=== PATIENT | female | born 1945 | race Caucasian/White ===

== ENCOUNTER 2018-10-27 09:42 | Outpatient (RCR) | payer MEDICARE, BC, SELFPAY ==
[2018-10-27 10:26] VITALS: BP 166/79; PULSE 103; RESP 16; TEMP 36.9; BMI 32.1
--- NOTE | 2018-10-27 11:12 | PCM.WC.HP ---
(1) Scalp wound Status: Acute Current Visit: Yes Qualifiers: Encounter type: initial encounter Code(s): S01.00XA - Unspecified open wound of scalp, initial encounter (2) Traumatic hematoma of scalp Status: Acute Current Visit: Yes Qualifiers: Encounter type: initial encounter Qualified Code(s): S00.03XA - Contusion of scalp, initial encounter Code(s): S00.03XA - Contusion of scalp, initial encounter (3) Gangrene Status: Acute Current Visit: Yes Code(s): I96 - Gangrene, not elsewhere classified (4) Hypertension Status: Chronic Current Visit: No Code(s): I10 - Essential (primary) hypertension (5) COPD (chronic obstructive pulmonary disease) Status: Chronic Current Visit: No Code(s): J44.9 - Chronic obstructive pulmonary disease, unspecified (6) Diabetes mellitus Status: Chronic Current Visit: No Qualifiers: Diabetes mellitus type: type 2 Code(s): E11.9 - Type 2 diabetes mellitus without complications (7) Obesity (BMI 30.0-34.9) Status: Chronic Current Visit: No Code(s): E66.9 - Obesity, unspecified (8) Intracranial hemorrhage after injury without loss of consciousness Status: Acute Current Visit: Yes Qualifiers: Encounter type: initial encounter Qualified Code(s): S06.300A - Unspecified focal traumatic brain injury without loss of consciousness, initial encounter Code(s): S06.300A - Unspecified focal traumatic brain injury without loss of consciousness, initial encounter (9) Hyperlipidemia Status: Chronic Current Visit: No Code(s): E78.5 - Hyperlipidemia, unspecified History of Present Illness Date of Service: 10/27/18 Chief Complaint: Large traumatic posterior occipital scalp wound with miladis necrosis and gangrene History of Wound: This is a 73-year-old female who presents for initial evaluation relative to a large scalp wound. The patient tripped on the stairs in her garage 3 weeks ago, falling backwards and striking the occipital region of her scalp against hard margy. She apparently did not lose consciousness. She did not seek medical attention at that time. She was primarily concerned with the health of her , who has subsequently recently perished. Due to the passing of the patient's , family members gathered at the patient's home, and the patient's son noted a large wound on her posterior scalp. She was seen and evaluated in the emergency department at [facility] on October 20, 2018. There she was noted to have a hematoma of her occipital scalp, which was incised and partially drained. It is unknown whether cultures were obtained. Patient was placed on an antibiotic 4 times daily, which continues until the current time, though the name of the antibiotic is not known by the patient. A CT scan was performed on October 20, 2018, which revealed a 10 mm focus of increased attenuation in the maggy consistent with hemorrhage. This finding was not felt to be clinically significant, after discussion with the neurosurgeon at [facility], and a repeat scan to assure resolution was recommended. The available report of the patient's CT scan does not specifically indicate whether any skull fractures were evident. The patient presents at this time for further evaluation and management relative to the traumatic wound on the posterior occipital scalp. Past Medical History Past Medical History: Chronic Problems Hypertension (Chronic) COPD (chronic obstructive pulmonary disease) (Chronic) Diabetes mellitus (Chronic) Obesity (BMI 30.0-34.9) (Chronic) Hyperlipidemia (Chronic) Past Medical History: Since history is positive for diabetes mellitus, hypertension, chronic obstructive pulmonary disease, hyperlipidemia, and obesity. She denies a history of myocardial infarction, congestive heart failure, cerebrovascular accident, cancer, renal disease, and thyroid disease. Surgical History: - - Patient has a history of bilateral total hip replacements. She is undergone left total knee replacement in the past. Home Medications: Ambulatory Orders Medication Instructions Recorded Amlodipine 10 mg PO DAILY 10/27/18 Aspirin, Baby 81 mg PO DAILY 10/27/18 Atorvastatin Calcium 40 mg PO DAILY 10/27/18 Clonidine HCl 0.1 mg PO QHS 10/27/18 Coreg 40 mg PO DAILY 10/27/18 Janumet Xr 50-1,000 mg Tablet 50 mg PO DAILY 10/27/18 Latanoprost 0.5 mg EACH EYE QHS 10/27/18 Losartan-Hctz 100-12.5 mg Tab 100 mg PO DAILY 10/27/18 Metformin HCl 1,000 mg PO DAILY 10/27/18 Potassium 99 mg PO DAILY 10/27/18 Symbicort 80-4.5 Mcg Inhaler 80 mcg INHALATION BID 10/27/18 - Family History Paternal - - Patient's father in his 80s of old age. Patient's mother at age of 72 with a history of rheumatic heart disease. Social History: Patient is a recent . She lives alone. She is a former smoker. She consumes alcoholic beverages occasionally. She is a retired employee of a grocery store, in a management position. Lives: Alone Smoking Status: Former smoker Tobacco Use: Non-smoker Alcohol: Occasional Drugs: None Review of Systems Constitutional: Denies: Chills, Fever, Weight Change Eyes: Denies: Pain, Vision Change HEENT: Denies: Difficulty Hearing, Difficulty Swallowing, Sinus Congestion Cardiovascular: Denies: Chest Pain, Palpitations Respiratory: Denies: Cough, Shortness of Breath Gastrointestinal: Denies: Diarrhea, Nausea, Vomiting Genitourinary: Denies: Dysuria, Hematuria Endocrine: Denies: Heat/ Cold Intolerance, Polydipsia, Polyuria Hematologic/ Lymphatic: Denies: Easy Bruising, Easy Bleeding - Physical Exam Vital Signs Temp Pulse Resp BP 98.4 F 103 H 16 166/79 H 10/27/18 10:26 10/27/18 10:26 10/27/18 10:26 10/27/18 10:26 General: Alert, Oriented x3, Cooperative, No apparent distress, Well developed, Well nourished, - - The patient is moderately obese HEENT: PERRLA, EOMI, Normocephalic, - - A large frankly necrotic wound is noted on the posterior occipital scalp. Dimensions are documented elsewhere. There is purulent material emanating from the inferior portion of this wound. Swab cultures were obtained for aerobic and anaerobic growth. Oral: Moist Mucosa, No Gingival or Mucosal Lesions/ Ulcerations Neck: Supple, No JVD, Negative Carotid Bruits, Negative Hepatojugular Reflux, No Nodes, No Nuchal Rigidity, Trachea Midline Lungs: Clear to auscultation, Normal air movement, No rhonchi, No wheeze, No rales Cardiovascular: Regular rate, Regular Rhythm, Normal S1, Normal S2, No murmurs Abdomen: Soft, Non Tender, Non-Distended, Obese Extremities: No clubbing, No cyanosis, No edema, No Calf Tenderness Skin: No rashes Wound Measurements and Assessment WC - Nurse 1 - General Ulcer Measurement Start: 10/27/18 10:25 Freq: Status: Active Protocol: Activity Type Activity Date Activity User E-Sign Co-Sign Detail Recorded Client Recorded Date Recorded By Document 10/27/18 10:26 MW [id number] 10/27/18 10:34 MW 10/27/18 10:26 Wound Center Nurse 1 [Ulcer Assessment] #1 POST SCALP -Combined with other wound No -Current Size (cm) - Length 4.5 -Current Size (cm) - Width 4.6 -Current Size (cm) - Depth 0.1 -Total Square Cm 20.70 -Date of Last Picture (Recall this 10/27/18 field) -Photo Taken Yes -Epithelialization None Present -Tunneling No -Undermining/Tunneling No -Circular Undermining No -Exudate Amt Medium -Exudate Type Yellow/Green -Wound Margin Thickened -Granulation Amt None Present (0 %) -Granulation Quality N/A -Slough/Fibrin Yes -Necrosis Amt Large (67-100%) -Necrotic Tissue Type Eschar -Structure Exposed N/A -Texture (Josephine-wound Skin Appearance) No Abnormality Assessed -Moisture (Josephine-wound Skin Appearance No Abnormality ) Assessed Dry/Scaly -Color (Josephine-wound Skin Appearance) No Abnormality Assessed -Temperature (Josephine-wound Skin No Abnormality Appearance) (Pt Warm) -Tenderness on Palpation (Josephine-wound No Skin Appearance) -Ulcer Cleansing Rinsed/ Irrigated with Saline -Foul Odor after Cleansing No -Anesthetic Used 5% Lidocaine Gel [Edema Assessment] -Lower Limb Edema Present No Musculoskeletal: No Muscle Wasting Neurological: Cranial nerves II-XII grossly intact, Neuro grossly intact, - - Specifically, with respect to findings on the patient's recent CT scan, there is no evidence of neurological deficit at this time. Psych/Mental Status: Normal Affect, Appropriate, Alert and oriented to time, place, person, mood and affect Debridement Note Laterality: Not Applicable - Posterior occipital scalp Type of Debridement: Excisional debridement Anesthesia Used: 5% Lidocaine Gel Depth: Down to and including healthy tissue, in the subcutaneous layer Percentage of wound debrided: 100 Instrument Used: Forceps, - - Scissors Severity: Fat Layer Exposed Amount of bleeding with debridement: Mild Bleeding Controlled with: Compression and gauze Patient tolerated procedure well A large frankly necrotic scalp wound was noted on the posterior occipital scalp. During the course of obtaining swab cultures for aerobic and anaerobic growth, it became evident that there was a large amount of undermined space beneath the necrotic tissue. Therefore, using a sterile scalpel, and sterile scissors, the large necrotic eschar was excised, exposing a large open wound beneath. The underlying skull appears to be intact. The debridement was carried out to the margins of the necrotic tissue, no care was exercised to avoid extending into adjacent healthy tissue, due to concerns regarding bleeding in the well vascularized scalp. Undermining is noted peripherally. Assessment/Plan Active Problems Scalp wound (Acute) Traumatic hematoma of scalp (Acute) Gangrene (Acute) Intracranial hemorrhage after injury without loss of consciousness (Acute) Assessment: This is a 73-year-old female with medical problems as documented above. A posterior occipital scalp injury was sustained approximately 3 weeks ago, result of a fall in the patient's garage. She presents at this time with a large frankly necrotic wound on her posterior scalp, with another lying cavity which likely represented the hematoma cavity from her injury. A debridement has been performed, excising the overlying necrotic tissue, leaving a large tissue defect remaining, with some degree of undermining. Plan: We are to implement the use of Aquacel topically within the large scalp wound. This will be changed daily or every other day. An effort will be made to recruit the services of home health nursing care. We will obtain routine laboratory studies, including a CBC, comprehensive metabolic profile, hemoglobin A1c, and serum prealbumin. Swab cultures have been obtained for aerobic and anaerobic growth, and results will be awaited. We will defer management and follow-up relative to the patient's neurological status and recent CT scan findings showing hemorrhage within the maggy. The patient and her friend have been advised to seek follow-up in this regard with the patient's primary care physician in [place]. A follow-up CT scan has been recommended as follow-up to the initial scan. The patient has been advised to continue with her current course of antibiotics to completion. She is to return in 1 week for reassessment. We are to request consultation with Dr. Zaman, Plastic Surgery, for recommendations as to optimal management of the large posterior scalp defect. Influenza vaccine was not administered today. The patient is not a smoker. She stands 5 feet 4 inches tall. She weighs 190 pounds. BMI is 32.1, which places the patient in a class I obesity category. Weight loss has been recommended, in collaboration with her primary care physician has been advised.
[2018-10-27 18:06] LABS: M R Staph aureus DNA By PCR Negative (Negative); Probe Check PASS; Staph aureus DNA By PCR POSITIVE (Negative)
--- OUTSIDE RECORDS SUMMARY | 2018-12-29 12:28 | XMS RPT_ITS ---
:1945 Author Organization OHIP Care Team Providers Name Role Phone Kd Limon Attending Unavailable Chet Lorenz Primary Care Unavailable Kd Limon Referring Unavailable RICKY YEAGER, DR. VILLARREAL Attending Unavailable CHET LORENZ MD Primary Care Unavailable CHET LORENZ Admitting Unavailable CHET LORENZ Attending Unavailable CHET LORENZ Primary Care Unavailable CHET LORENZ Consulting Unavailable PROVIDER, UNKNOWN Consulting Unavailable PROVIDER, UNKNOWN Consulting Unavailable PROVIDER, UNKNOWN Consulting Unavailable CHET LORENZ Admitting Unavailable CHET LORENZ Attending Unavailable CHET LORENZ Primary Care Unavailable CHET LORENZ Consulting Unavailable PROVIDER, UNKNOWN Consulting Unavailable PROVIDER, UNKNOWN Consulting Unavailable PROVIDER, UNKNOWN Consulting Unavailable STEPHANIE MILLER DR Admitting Unavailable STEPHANIE MILLER DR Attending Unavailable STEPHANIE MILLER DR Primary Care Unavailable CHET LORENZ Consulting Unavailable PROVIDER, UNKNOWN Consulting Unavailable PROVIDER, UNKNOWN Consulting Unavailable PROVIDER, UNKNOWN Consulting Unavailable JOSE, DR JAD Potter Admitting Unavailable JOSE, DR JAD Potter Attending Unavailable CHET LORENZ Referring Unavailable JOSE, DR JAD Potter Primary Care Unavailable CHET LORENZ Consulting Unavailable PROVIDER, UNKNOWN Consulting Unavailable PROVIDER, UNKNOWN Consulting Unavailable PROVIDER, UNKNOWN Consulting Unavailable JESS VILLALOBOS Attending Unavailable UNKNOWN, PROVIDER Attending Unavailable [facility] Primary Care Unavailable PROBLEMS PROBLEMS DATE TYPE CONDITION / CODE ATTENDING STATUS SOURCE 08/07/2018 Active Laceration without JESS VILLALOBOS Active [facility] Other right eyelid and [place] periocular area, Repository initial encounter / S01.111A(ICD-10) 08/07/2018 Admitting Unknown / Unknown Active [facility](Unknown[facility] Repository 04/28/2018 Admitting Encounter for CHET LORENZ Active [facility] screening mammogram [facility] neoplasm of breast Repository / Z1231(ICD-10) 04/28/2018 Principle Encounter for CHET LORENZ Active [facility] screening mammogram [facility] neoplasm of breast Repository / Z1231(ICD-10) 04/23/2018 Admitting Type 2 diabetes CHET LORENZ Active [facility] E119(ICD-10) Repository 04/23/2018 Principle Type 2 diabetes CHET LORENZ Active [facility] E119(ICD-10) Repository 04/23/2018 Secondary Essential (primary) CHET LORENZ Active [facility] hypertension / [facility] I10(ICD-10[facility] Repository 04/23/2018 Secondary Hyperlipidemia, CHET LORENZ Active [facility] unspecified / [facility] E785(ICD-10) [facility] Repository 04/23/2018 Secondary Chronic obstructive LORENZCHET TIDWELL Active [facility] Diagnosis pulmonary disease, [facility] unspecified / Hospital J449(ICD-10) Repository 04/23/2018 Secondary Obesity, CHET LORENZ Active [facility] unspecified / [facility] E669(ICD-10) [facility] Repository PROCEDURES PROCEDURES No Procedure Records FoundRESULTS RESULTS WOUND CTR HISTORY Observed: 10/27/2018 Status: F Source: DAGMAR AND PHYSICAL 11:38 AM [facility] REPOSITORY [facility] [address] [place] [address] Wound Ctr History AND Physical 10/27/18 1112 MR#: [id number] Acct: [id number] Name: TRACI SANDS Rep #: [id number] : 1945 73 From: Kd Limon MD PCP: Chet Lorenz Status: REG RCR Y Location: WC (1) Scalp wound Status: Acute Current Visit: Yes Qualifiers: Encounter type: initial encounter Code(s): S01.00XA - Unspecified open wound of scalp, initial encounter (2) Traumatic hematoma of scalp Status: Acute Current Visit: Yes Qualifiers: Encounter type: initial encounter Qualified Code(s): S00.03XA - Contusion of scalp, initial encounter Code(s): S00.03XA - Contusion of scalp, initial encounter (3) Gangrene Status: Acute Current Visit: Yes Code(s): I96 - Gangrene, not elsewhere classified (4) Hypertension Status: Chronic Current Visit: No Code(s): I10 - Essential (primary) hypertension (5) COPD (chronic obstructive pulmonary disease) Status: Chronic Current Visit: No Code(s): J44.9 - Chronic obstructive pulmonary disease, unspecified (6) Diabetes mellitus Status: Chronic Current Visit: No Qualifiers: Diabetes mellitus type: type 2 Code(s): E11.9 - Type 2 diabetes mellitus without complications (7) Obesity (BMI 30.0-34.9) Status: Chronic Current Visit: No Code(s): E66.9 - Obesity, unspecified (8) Intracranial hemorrhage after injury without loss of consciousness Status: Acute Current Visit: Yes Qualifiers: Encounter type: initial encounter Qualified Code(s): S06.300A - Unspecified focal traumatic brain injury without loss of consciousness, initial encounter Code(s): S06.300A - Unspecified focal traumatic brain injury without loss of consciousness, initial encounter (9) Hyperlipidemia Status: Chronic Current Visit: No Code(s): E78.5 - Hyperlipidemia, unspecified History of Present Illness Date of Service: 10/27/18 Chief Complaint: Large traumatic posterior occipital scalp wound with miladis necrosis and gangrene History of Wound: This is a 73-year-old female who presents for initial evaluation relative to a large scalp wound. The patient tripped on the stairs in her garage 3 weeks ago, falling backwards and striking the occipital region of her scalp against hard margy. She apparently did not lose consciousness. She did not seek medical attention at that time. She was primarily concerned with the health of her , who has subsequently recently perished. Due to the passing of the patient's , family members gathered at the patient's home, and the patient's son noted a large wound on her posterior scalp. She was seen and evaluated in the emergency department at [facility] on October 20, 2018. There she was noted to have a hematoma of her occipital scalp, which was incised and partially drained. It is unknown whether cultures were obtained. Patient was placed on an antibiotic 4 times daily, which continues until the current time, though the name of the antibiotic is not known by the patient. A CT scan was performed on October 20, 2018, which revealed a 10 mm focus of increased attenuation in the maggy consistent with hemorrhage. This finding was not felt to be clinically significant, after discussion with the neurosurgeon at [facility], and a repeat scan to assure resolution was recommended. The available report of the patient's CT scan does not specifically indicate whether any skull fractures were evident. The patient presents at this time for further evaluation and management relative to the traumatic wound on the posterior occipital scalp. Past Medical History Past Medical History: Chronic Problems Hypertension (Chronic) COPD (chronic obstructive pulmonary disease) (Chronic) Diabetes mellitus (Chronic) Obesity (BMI 30.0-34.9) (Chronic) Hyperlipidemia (Chronic) Past Medical History: Since history is positive for diabetes mellitus, hypertension, chronic obstructive pulmonary disease, hyperlipidemia, and obesity. She denies a history of myocardial infarction, congestive heart failure, cerebrovascular accident, cancer, renal disease, and thyroid disease. Surgical History: - - Patient has a history of bilateral total hip replacements. She is undergone left total knee replacement in the past. Home Medications: Ambulatory Orders Medication Instructions Recorded Amlodipine 10 mg PO DAILY 10/27/18 Aspirin, Baby 81 mg PO DAILY 10/27/18 Atorvastatin Calcium 40 mg PO DAILY 10/27/18 - Family History Paternal - - Patient's father in his 80s of old age. Patient's mother at age of 72 with a history of rheumatic heart disease. Social History: Patient is a recent . She lives alone. She is a former smoker. She consumes alcoholic beverages occasionally. She is a retired employee of a grocery store, in a management position. Lives: Alone Smoking Status: Former smoker Tobacco Use: Non-smoker Alcohol: Occasional Drugs: None Review of Systems Constitutional: Denies: Chills, Fever, Weight Change Eyes: Denies: Pain, Vision Change HEENT: Denies: Difficulty Hearing, Difficulty Swallowing, Sinus Congestion Cardiovascular: Denies: Chest Pain, Palpitations Respiratory: Denies: Cough, Shortness of Breath Gastrointestinal: Denies: Diarrhea, Nausea, Vomiting Genitourinary: Denies: Dysuria, Hematuria Endocrine: Denies: Heat/ Cold Intolerance, Polydipsia, Polyuria Hematologic/ Lymphatic: Denies: Easy Bruising, Easy Bleeding - Physical Exam Vital Signs Temp Pulse Resp BP 98.4 F 103 H 16 166/79 H 10/27/18 10:26 10/27/18 10:26 10/27/18 10:26 10/27/18 10:26 General: Alert, Oriented x3, Cooperative, No apparent distress, Well developed, Well nourished, - - The patient is moderately obese HEENT: PERRLA, EOMI, Normocephalic, - - A large frankly necrotic wound is noted on the posterior occipital scalp. Dimensions are documented elsewhere. There is purulent material emanating from the inferior portion of this wound. Swab cultures were obtained for aerobic and anaerobic growth. Oral: Moist Mucosa, No Gingival or Mucosal Lesions/ Ulcerations Neck: Supple, No JVD, Negative Carotid Bruits, Negative Hepatojugular Reflux, No Nodes, No Nuchal Rigidity, Trachea Midline Lungs: Clear to auscultation, Normal air movement, No rhonchi, No wheeze, No rales Cardiovascular: Regular rate, Regular Rhythm, Normal S1, Normal S2, No murmurs Abdomen: Soft, Non Tender, Non-Distended, Obese Extremities: No clubbing, No cyanosis, No edema, No Calf Tenderness Skin: No rashes Wound Measurements and Assessment WC - Nurse 1 - General Ulcer Measurement Start: 10/27/18 10:25 Freq: Status: Active Protocol: Activity Type Activity Date Activity User E-Sign Co-Sign Detail Recorded Client Recorded Date Recorded By Document 10/27/18 10:26 MW [id number] 10/27/18 10:34 [facility] W[facility] Nurse 1 [Ulcer Assessment] Musculoskeletal: No Muscle Wasting Neurological: Cranial nerves II-XII grossly intact, Neuro grossly intact, - - Specifically, with respect to findings on the patient's recent CT scan, there is no evidence of neurological deficit at this time. Psych/Mental Status: Normal Affect, Appropriate, Alert and oriented to time, place, person, mood and affect Debridement Note Laterality: Not Applicable - Posterior occipital scalp Type of Debridement: Excisional debridement Anesthesia Used: 5% Lidocaine Gel Depth: Down to and including healthy tissue, in the subcutaneous layer Percentage of wound debrided: 100 Instrument Used: Forceps, - - Scissors Severity: Fat Layer Exposed Amount of bleeding with debridement: Mild Bleeding Controlled with: Compression and gauze Patient tolerated procedure well A large frankly necrotic scalp wound was noted on the posterior occipital scalp. During the course of obtaining swab cultures for aerobic and anaerobic growth, it became evident that there was a large amount of undermined space beneath the necrotic tissue. Therefore, using a sterile scalpel, and sterile scissors, the large necrotic eschar was excised, exposing a large open wound beneath. The underlying skull appears to be intact. The debridement was carried out to the margins of the necrotic tissue, no care was exercised to avoid extending into adjacent healthy tissue, due to concerns regarding bleeding in the well vascularized scalp. Undermining is noted peripherally. Assessment/Plan Active Problems Scalp wound (Acute) Traumatic hematoma of scalp (Acute) Gangrene (Acute) Intracranial hemorrhage after injury without loss of consciousness (Acute) Assessment: This is a 73-year-old female with medical problems as documented above. A posterior occipital scalp injury was sustained approximately 3 weeks ago, result of a fall in the patient's garage. She presents at this time with a large frankly necrotic wound on her posterior scalp, with another lying cavity which likely represented the hematoma cavity from her injury. A debridement has been performed, excising the overlying necrotic tissue, leaving a large tissue defect remaining, with some degree of undermining. Plan: We are to implement the use of Aquacel topically within the large scalp wound. This will be changed daily or every other day. An effort will be made to recruit the services of home health nursing care. We will obtain routine laboratory studies, including a CBC, comprehensive metabolic profile, hemoglobin A1c, and serum prealbumin. Swab cultures have been obtained for aerobic and anaerobic growth, and results will be awaited. We will defer management and follow-up relative to the patient's neurological status and recent CT scan findings showing hemorrhage within the maggy. The patient and her friend have been advised to seek follow-up in this regard with the patient's primary care physician in [place]. A follow-up CT scan has been recommended as follow-up to the initial scan. The patient has been advised to continue with her current course of antibiotics to completion. She is to return in 1 week for reassessment. We are to request consultation with Dr. Zaman, Plastic Surgery, for recommendations as to optimal management of the large posterior scalp defect. Influenza vaccine was not administered today. The patient is not a smoker. She stands 5 feet 4 inches tall. She weighs 190 pounds. BMI is 32.1, which places the patient in a class I obesity category. Weight loss has been recommended, in collaboration with her primary care physician has been advised. 10/27/18 1138 <Electronically signed by Kd Limon MD> Date Kd Limon MD CC: Signed MRSA WOUND DNA BY Collected: 10/27/2018 Status: F Source: DAGMAR PCR 11:00 AM [facility] REPOSITORY Order Comment: Specimen Source? POSTERIOR HEAD TYPE CODE TESTS RESULT OUT OF RANGE REFERENCE UNITS LAB L8200.1100 Negative Normal MRSA Negative RESULT LAB L8200.1150 Negative High SA RESULT POSITIVE Performed By: #### L8200.1075 #### [facility] [place], [address] Observed: 10/27/2018 Status: P Source: DAGMAR CULTURE, DEEP WOUND 11:00 AM [facility] REPOSITORY Gram Stain Gram Stain Rare White Blood Cells Rare Red Blood Cells No organisms seen Wound Culture ORGANISM 1: Staphylococcus aureus Amount Growth 1+ ORGANISM 2: Enterococcus faecalis Amount Growth 1+ Staphylococcus aureus: REACTION Cefoxitin *NF NEG Doxycline <=0.5 S Daptomycin $$ 0.25 S Clindamycin $$ R Inducable Clindamycin Resistan POS Erythromycin $ >=8 R Gentamicin $ <=0.5 S Levofloxacin $ <=0.12 S Linezolid $$$$ 2 S Moxifloxicin *NF <=0.25 S Oxacillin NF 0.5 S Tigecycline $$$$ <=0.12 S Rifampin $$ <=0.5 S Tetracycline NF <=1 S Trimethoprim/Sulfametho $ <=10 S Vancomycin $ <=0.5 S (NF) indicates non-formulary drug at [facility]. Approval by Infectious Disease Specialist required before non-formulary drugs may be ordered and/or dispensed. * CLSI guidelines does not recommend testing of cephalosporins. This interpretation is deduced from Beta-lactam/penicillin results. Enterococcus faecalis: REACTION Ampicillin $ <=2 S Daptomycin $$ 0.5 S Gentamicin SYN-S S Linezolid $$$$ 2 S Tigecycline $$$$ <=0.12 S Streptomycin $ SYN-S S Vancomycin $ <=0.5 S (NF) indicates non-formulary drug at [facility]. Approval by Infectious Disease Specialist required before non-formulary drugs may be ordered and/or dispensed. * CLSI guidelines does not recommend testing of cephalosporins. This interpretation is deduced from Beta-lactam/penicillin results. Cult, Anaerobic Checking for anaerobes, further studies to follow. Performed By: #### M100.1500 #### [facility] [address] [place], [place], [id number] CT BRAIN W/O CONTRAST Observed: 10/20/2018 Status: F Source: [place] MARINELLI 12:06 PM [place] [address] Patient: TRACI SANDS Phone#: : 1945 Age: 73 Gender: F Pt. Type: ER Account: [id number] Location: 052 Ordering: JAD GARCIA Exam Date: 10/20/2018/11:57 Family Phys: CHET LORENZ Charge Code: 591127 Physician: [place] Order #: [id number] DLP Dose#: PROCEDURE: CT BRAIN WITHOUT CONTRAST COMPARISON: None. INDICATIONS: Trauma TECHNIQUE: CT images were obtained without contrast material. All CT scans at this facility use dose modulation, iterative reconstruction, and/or weight based dosing when appropriate to reduce radiation dose to as low as reasonably achievable. IV CONTRAST: No IV contrast used,ml TOTAL DOSE: 57.5 CTDIvol(mGy) FINDINGS: CEREBRUM: Age-appropriate atrophy is present, without visible acute hemorrhage or lesion. CEREBELLUM: No edema, hemorrhage, mass, acute infarction, or inappropriate atrophy. BRAINSTEM: There is a 10 mm focus of abnormal attenuation in the posterior aspect of the maggy consistent with small hemorrhage. CSF SPACES: Ventricles, cisterns, and sulci are appropriate for age. No hydrocephalus, subarachnoid hemorrhage, or mass. SKULL: A large scalp hematoma and laceration is present high on the left convexity. SINUSES: Limited views demonstrate no significant mucosal thickening or fluid. ORBITS: Limited views are unremarkable. OTHER: Negative. CONCLUSION: 1. A 10 mm focus of increased attenuation in the maggy consistent with hemorrhage. Prior studies are not available for comparison. 2. There is a large left posterior parietal scalp hematoma. Continued Report - Page 2 of 2 Patient: TRACI SANDS Phone#: : 1945 Age: 73 Gender: F Pt. Type: ER Account: [id number] Location: 2 Ordering: JAD GARCIA Exam Date: 10/20/2018/11:57 Family Phys: CHET LORENZ Charge Code: 508293 Physician: [place] Order #: [id number] DLP Dose#: 3. This report was communicated by telephone to Dr. Jda Garcia at the dictation time shown below. Dictated by: Nel Noel MD on 10/20/2018 at 12:14 Approved by: Nel Noel MD on 10/20/2018 at 12:14 EMERGENCY REPORT Observed: 10/20/2018 Status: F Source: MO REJIRADHA 11:14 AM [facility] EMERGENCY ROOM REPORT NAME ACCOUNT SEX AGE ADMIT DISCHARGE PT MED. RECORD# NUMBER DATE DATE TYPE BROOK [id number] F 73 10/20/18 10/20/18 3 TRACI Gómez [id number] ROOM: ER DATE OF : 1945 DICTATING PHYSICIAN: Jad Garcia CHIEF COMPLAINT: Swelling to head. HISTORY OF PRESENT ILLNESS: The patient about 2 weeks ago tripped and fell at home. She fell back hitting her head on the floor. She states that she did not get knocked out, but she had to crawl into another room. She since however has been up and ambulatory and has developed a large area of swelling to her head. She initially did not have any open areas. No bleeding or drainage. She had no loss of consciousness with that. She has had some pain to her head and scalp since at the area of swelling, but no other headache, dizziness, nausea or vomiting. She has been ambulatory and functioning normally. Today with no apparent injury, she started having some bleeding and drainage from the area of swelling to her scalp, so presents for evaluation of that. She did not recall having any direct trauma to this, but states that when she sleeps she lies back on that area and maybe it may have scraped open. The area of swelling that she had is less than it was, but still fairly considerable. She as mentioned has no chest pain, shortness of breath, or other complaints. PAST MEDICAL HISTORY: Significant for hypertension, diabetes, and high cholesterol. PAST SURGICAL HISTORY: She has had previous hip and knee surgeries, remote tonsillectomy. MEDICATIONS: Per med rec list. ALLERGIES: No known allergies. SOCIAL HISTORY: She lives at home. She is recently a as her just passed in the last couple of days. She does have some family staying with her. REVIEW OF SYSTEMS: As mentioned above. No other areas of injury or complaints. No extremity pain. No chest pain or shortness of breath. No vision problems. No previous bleeding disorders. PHYSICAL EXAMINATION: This is a 73-year-old pleasant female alert, appropriate, does not appear toxic. Her skin is pink, warm, and dry. HEENT: Pupils equal, round, and reactive to light. Extraocular muscles intact. Nose, mouth, and throat are normal. Page 1 of 3 BROOK, Emergency Room Report TRACI Gómez No tenderness to her neck. Lungs are clear. Cardiac exam is normal. Abdomen is soft. She moves all extremities appropriately. She ambulates well. Examination is generally focused to the scalp where she has a large fluctuant posterior scalp hematoma that is about 10 cm across. There is a lot of crusting and scabbed area over this. To the medial aspect of the hematoma, there is a superficial open area that is draining a very minimal amount of bloody drainage. DIAGNOSTIC DATA: I did proceed to get a head CT, which shows somewhat surprisingly about a 10 mm focused of increased attenuation in the maggy consistent with hemorrhage. The timing of this is quite unclear. She is essentially asymptomatic. She does have a history of hypertension, but most likely this is not acute in the last day or 2. It may very well have been from weeks ago. EMERGENCY DEPARTMENT COURSE AND TREATMENT: I discussed this with Dr. Stark, neurosurgeon at [place], who felt that she certainly would not need any acute neurosurgical intervention, mainly close medical monitoring for blood pressure and a repeat scan to assure resolution. PROCEDURE NOTE: The scalp area was cleansed with soap and water and then Hibiclens to the medial upper portion of the hematoma. I did incise an area of about 1 to 1-1/2 cm and expressed a large amount of thick hemorrhagic fluid. I was unable to express the entire contents of the hematoma as what was left is probably thick hematoma, but did certainly debulk the hematoma significantly. I did place two 5-0 Vicryl plus sutures in the area. DIAGNOSES: 1. 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 2. Scalp hematoma secondary to fall that was incised and partially drained. PLAN/DISPOSITION: The patient refuses admission, and thus I recommended that she follow up closely with her family doctor, Dr. Lorenz. She mainly needs close follow up for her hypertension and to make sure that she is not getting any secondary infection to the scalp. I did mention that this would probably take quite sometime to fully resolve. She probably does need some additional evaluation of the pontine hemorrhage to make sure that is resolving as well. She is to return if her symptoms worsen in any way. Dictated By: Jad Garcia MD 10/20/18 13:25 JOB #: [id number] Transcribed By: bakari 10/20/18 13:47 Electronically signed by: LEONID Garcia M.D. 10/21/18 07:09 Page 2 of 3 BROOK, Emergency Room Report TRACI Gómez Page 3 of 3 BROOK Emergency Room Report TRACI Gómez ED NOTE Observed: 08/07/2018 Status: COMPLETED Source: [place] 3:46 PM CLINIC OTHER CAMPUS REPOSITORY HNO ID: [id number] Author: Harish (Rn) TUCKER Gan Service: Emergency Medicine Author Type: Registered Nurse Type: ED Notes Filed: 08/07/2018 3:47 PM Note Text: Pt discharged home. Education provided on discharge instructions and follow-up. The patient verbalizes understanding and has no questions at this time. ED PROV NOTE Observed: 08/07/2018 Status: COMPLETED Source: [place] 2:31 PM CLINIC OTHER CAMPUS REPOSITORY HNO ID: [id number] Author: Jess Villalobos MD Service: Emergency Medicine Author Type: Physician Type: ED Provider Notes Filed: 08/07/2018 8:10 PM Note Text: ED Provider Note Patient Name: Traci Sands SERVICE DATE: 08/07/18 History Patient presents with: Fall 73-year-old female with chief complaint of laceration. She states she was walking outside and stumbled, falling and breaking her glasses. She denies hitting her head very hard. She denies loss of consciousness. She is not anticoagulated. She states that her glasses cut the right side of her face near her eye. She denies chest pain, shortness of breath, lightheadedness, dizziness, nausea, vomiting, neck pain, headache. No past medical history on file. No past surgical history on file. No family history on file. Social History Social History Main Topics - Smoking status: Not on file - Smokeless tobacco: Not on file - Alcohol use Not on file - Drug use: Unknown - Sexual activity: Not on file ALLERGIES No Known Allergies Review of Systems Constitutional: Negative for chills and fever. Respiratory: Negative for chest tightness and shortness of breath. Cardiovascular: Negative for chest pain. Gastrointestinal: Negative for nausea and vomiting. Musculoskeletal: Negative for neck pain. Skin: Positive for wound. Neurological: Negative for weakness, numbness and headaches. Hematological: Does not bruise/bleed easily. Physical Exam BP 146/58 Pulse 63 Temp (Src) 98.1 (Oral) Resp 16 Ht 5' 5 (1.65m) Wt 200 lb (90.7kg) SpO2 99% BMI 33.28 kg/(m2). Physical Exam Constitutional: She appears well-developed and well-nourished. She is active and cooperative. Non-toxic appearance. She does not have a sickly appearance. She does not appear ill. No distress. HENT: Head: Normocephalic. Head is with laceration. Right Ear: External ear normal. Left Ear: External ear normal. 1cm laceration lateral to the patients right eyebrow. Small abrasion adjacent to this. Eyes: Pupils are equal, round, and reactive to light. EOM are normal. Right eye exhibits no discharge. Left eye exhibits no discharge. Neck: Normal range of motion. Cardiovascular: Normal rate, regular rhythm and normal heart sounds. Exam reveals no gallop and no friction rub. No murmur heard. Pulmonary/Chest: Effort normal and breath sounds normal. No respiratory distress. She has no wheezes. She has no rales. Neurological: She is alert. She has normal strength. No cranial nerve deficit or sensory deficit. Skin: Skin is warm and dry. Laceration noted. No rash noted. She is not diaphoretic. No erythema. No pallor. Psychiatric: She has a normal mood and affect. Her behavior is normal. Judgment and thought content normal. Nursing note and vitals reviewed. Diagnostic Testing ED Labs Ordered and Reviewed - No data to display LAC REPAIR Date/Time: 08/07/2018 2:57 PM Performed by: LANA HOLLAND) Authorized by: LANA HOLLAND (BISMARK) Consent: Consent obtained: Verbal Consent given by: Patient Risks discussed: Poor cosmetic result Anesthesia (see MAR for exact dosages): Anesthesia method: None Laceration details: Location: Face Length (cm): 1 Depth (mm): 4 Repair type: Repair type: Simple Pre-procedure details: Preparation: Patient was prepped and draped in usual sterile fashion Exploration: Wound exploration: wound explored through full range of motion and entire depth of wound probed and visualized Wound extent: no areolar tissue violation noted, no fascia violation noted, no foreign bodies/material noted, no muscle damage noted, no nerve damage noted, no tendon damage noted, no underlying fracture noted and no vascular damage noted Contaminated: no Treatment: Area cleansed with: Saline Amount of cleaning: Standard Irrigation solution: Sterile saline Skin repair: Repair method: Tissue adhesive Approximation: Approximation: Close Post-procedure details: Dressing: Open (no dressing) Patient tolerance of procedure: Tolerated well, no immediate complications ED Course / Clinical Impression Clinical Impressions as of Aug 07 1502 Laceration of right periocular area without foreign body, initial encounter Course: Vital signs were reviewed. Triage records were reviewed. Medical records were reviewed. Nursing notes were reviewed and incorporated. Medical Decision Makin-year-old female with chief complaint facial laceration. On exam, well-developed adult female seated on the bed in NAD. Afebrile, nontoxic. Small laceration lateral to the right eyebrow. This was repaired as described above. Patient was appropriate for discharge. At time of discharge the patient was resting comfortably, afebrile, non- toxic, had an understanding of the plan and was in agreement with the plan. The attending who evaluated and managed this patient was Dr. Jess Villalobos. Plan: The patient was discharged home with verbal and written instructions. They were instructed to return as needed for persistent or worsening symptoms or any new concerns. Consent: A procedure or transfusion was performed - Dayanna Holland PA-C MDM / Disposition / Plan MDM The patient was DISCHARGED: Counseled patient regarding suspected diagnosis AND need for follow-up. Discharged home with verbal and written instructions. They were instructed to return as needed for persistent or worsening symptoms or any new concerns. Condition at time of disposition: stable SIGNATURE: DIA Bowden (Bismark) BISMARK Holland 08/07/18 1502 I have personally seen and examined this patient. I have fully participated in the care of this patient with the resident. I have reviewed all pertinent clinical information, including history, physical exam and plan I was present for the significant portion of the procedure/(s) Physical exam: HEENT: Normocephalic, right lateral eye ecchymosis, 1cm laceration to the left restorationist, 2 abrasions to the left restorationist, pupils equal round reactive to light, EOMI Neck: Supple no lymphadenopathy cardiac: Regular rate and rhythm, normal S1-S2, no murmurs rubs or gallops lungs: Clear to auscultation bilaterally, no wheezes, rales, rhonchi abdomen: Soft, nontender, nondistended, normoactive bowel sounds, no peritoneal signs extremities: No cyanosis, no edema neuro: Cranial nerves II through XII grossly intact, moving all extremities equally, no focal deficits, gait is normal, 5 over 5 strength in upper and lower extremities, sensation intact bilateral upper and lower extremities, no cerebellar signs Jess Villalobos MD 08/07/182009 ED TRIAGE NOTE Observed: 08/07/2018 Status: COMPLETED Source: [place] 1:13 PM [facility] REPOSITORY HNO ID: [id number] Author: BISMARK Bruce (Pa) Service: Emergency Medicine Author Type: Physician Order Dispatcher Chief Type: ED Triage Notes Filed: 08/07/2018 1:16 PM Note Text: ED INTAKE NOTE Patient Name: Traci Sands Service Date: 08/07/18 BRIEF HPI: 73 y/o F presents to ED with c/o fall that occurred prior to arrival. States she tripped and fell forward, hitting the R side of her face. States her glasses broke and cut the periorbital area. Denies vision changes, weakness, dizziness, numbness/tingling, CP, SOB, and LOC. Denies pain to there joint/extremity. Denies neck/back pain. States unsure of last Tdap. BRIEF EXAM: Awake and Alert RRR CTAB No midline CTL spine TTP. EOMI approx 1 cm laceration to R periorbital area and two abrasions to the R periorbital area. INTAKE WORKUP: Tdap ordered. SIGNATURE: Luma Bustillos PA-C ED NOTE Observed: 08/07/2018 Status: COMPLETED Source: [place] 1:04 PM [facility] REPOSITORY HNO ID: [id number] Author: Feroz RichRn) TUCKER Marrufo Service: Emergency Medicine Author Type: Registered Nurse Type: ED Notes Filed: 08/07/2018 1:07 PM Note Text: The pt was walking into the hospital to visit her and she tripped and fell. She denies LOC, sanders or neck pain. She only c/o a small laceration beside her right eye MAMM DIGITAL BILAT Observed: 04/28/2018 Status: F Source: [place] SCREEN 1:25 PM [place] [address] Patient: TRACI SANDS Phone#: : [phone] Age: 72 Gender: F Pt. Type: Out Account: [id number] Location: 011 Ordering: CHET LORENZ Exam Date: 04/28/2018/13:06 Family Phys: CHET LORENZ Charge Code: 423772 Physician: [place] Order #: [id number] DLP Dose#: PROCEDURE: MAMM BILAT DIGITAL SCREENING WITH CAD COMPARISON: [facility], RT SPOT/MAG DIGITAL, 05/10/2015, 11:24. [facility], BILAT SCREENING, 08/19/2016, 14:05. INDICATIONS: Screening BREAST COMPOSITION: Almost entirely fat (<25% glandular). FINDINGS: DIAGNOSTIC CATEGORY 2--BENIGN FINDING: RIGHT BREAST: No significant suspicious finding. No significant change has occurred. LEFT BREAST: No significant suspicious finding. Scattered benign-appearing nodules are present. No significant change has occurred. RECOMMENDATIONS: ROUTINE MAMMOGRAM AND CLINICAL EVALUATION. PLEASE NOTE: A NORMAL MAMMOGRAM DOES NOT EXCLUDE THE POSSIBILITY OF BREAST CANCER. A CLINICALLY SUSPICIOUS PALPABLE LUMP SHOULD BE BIOPSIED. THIS FACILITY UTILIZES A REMINDER SYSTEM TO ENSURE THAT ALL PATIENTS RECEIVE REMINDER LETTERS FOR APPOINTMENTS. THIS INCLUDES REMINDERS FOR ROUTINE MAMMOGRAMS, DIAGNOSITC MAMMOGRAMS, OR OTHER BREAST IMAGING INTERVENTIONS WHEN APPROPRIATE. THIS PATIENT WILL BE PLACED IN THE APPROPRIATE REMINDER SYSTEM. Dictated by: Nel Noel MD on 04/28/2018 at 13:55 Approved by: Nel Noel MD on 04/28/2018 at 13:55 CBC Collected: 04/23/2018 Status: F Source: [place] 8:18 AM [facility] REPOSITORY TYPE CODE TESTS RESULT OUT OF RANGE REFERENCE UNITS LAB CBC(LOINC) CBC Result Comment: CBC-COMPLETE BLOOD COUNT LAB WBC(LOINC) 4.5 - 10.8 x 10EE3/UL WBC 6.3 LAB RBC(LOINC) 4.10 - x 10EE6/UL 5.30 RBC Low 3.95 LAB HEMOGLOBIN(LOINC) 12.0 - g/dl 16.0 HEMOGLOBIN 12.7 LAB HEMATOCRIT(LOINC) 34.0 - % 46.0 HEMATOCRIT 38.4 LAB MCV(LOINC) 80 - 99 fl MCV 97 LAB MCH(LOINC) 27 - 33 pg MCH 32 LAB MCHC(LOINC) 32 - 36 X10 3 MCHC 33 LAB RDW/CV(LOINC) 12.0 - % 15.6 RDW/CV 13.2 LAB PLATELET(LOINC) 150 - 450 x10EE3/UL PLATELET 211 LAB MPV(LOINC) 6.6 - 10.5 fl MPV 8.4 Result Comment: AUTOMATED DIFFERENTIAL LAB NEUT %(LOINC) 46.0 - 76.0 % NEUT % 74.7 LAB LYMPH %(LOINC) 20.0 - 45.0 % LYMPH % Low 15.3 LAB MONOS %(LOINC) 0.0 - 10.0 % MONOS % 5.7 LAB EO %(LOINC) 0.0 - 7.0 % EO % 3.4 LAB BASO %(LOINC) 0.0 - 2.0 % BASO % 0.9 LAB Lymph #(LOINC) 0.80 - 2.80 x10EE3/U L Lymph # 1.00 LAB Neut #(LOINC) 1.50 - 7.10 x10EE3/U L Neut # 4.70 LAB Warren #(LOINC) 0.20 - 1.00 x10EE3/U L Warren # 0.40 LAB EO #(LOINC) 0.00 - 0.50 x10EE3/U L EO # 0.20 LAB Baso #(LOINC) 0.00 - 0.10 x10EE3/U L Baso # 0.10 LAB MANUAL DIFF(LOINC) MANUAL DIFF N/A LAB MORPHOLOGY(LOINC ) MORPHOLOGY N/A Result Comment: {CD] Performed By: #### [id number] #### [facility],[address] [place] [address] CMP WITH EGFR Collected: 04/23/2018 Status: F Source: [facility] 8:18 AM [facility] REPOSITORY TYPE CODE TESTS RESULT OUT OF RANGE REFERENCE UNITS LAB CMP with eGFR(INC) CMP with eGFR Result Comment: COMPREHENSIVE METABOLIC PANEL LAB SODIUM(LOINC) 136 - 145 mmol/l SODIUM 139 LAB POTASSIUM(LOINC) 3.5 - 5.1 mmol/L POTASSIUM 4.1 LAB CHLORIDE(LOINC) 98 - 107 mmol/L CHLORIDE 100 LAB CO2(LOINC) 21.0 - mmol/L 31.0 CO2 High 31.4 LAB GLUCOSE(LOINC) 74 - 106 mg/dl GLUCOSE High 157 LAB BUN(LOINC) 6 - 20 mg/dl BUN High 25 LAB CREATININE(LOINC) 0.6 - 1.2 mg/dl CREATININE 0.7 LAB AST/SGOT(LOINC) 13 - 39 U/L AST/SGOT 20 LAB ALK PHOS(LOINC) 38 - 126 U/L ALK PHOS 87 LAB CALCIUM(LOINC) 8.6 - mg/dl 10.2 CALCIUM 9.2 LAB TOTAL 6.4 - 8.3 g/dl PROTEIN(LOINC) TOTAL PROTEIN 6.7 LAB ALBUMIN(LOINC) 3.4 - 4.8 g/dL ALBUMIN 3.9 LAB GLOBULIN(LOINC) 1.5 - 3.8 G/DL GLOBULIN 2.8 LAB A/G RATIO(LOINC) 0.9 - 1.6 A/G RATIO 1.4 LAB TOTAL BILI(LOINC) 0.0 - 1.5 mg/dl TOTAL BILI 0.6 LAB B/C RATIO(LOINC) 0 - 30 ratio B/C High RATIO 36 LAB ALT/SGPT(LOINC) 8 - 35 U/L ALT/SGPT 33 LAB ANION GAP(LOINC) 10 - 20 mmol/L ANION GAP 12 LAB AGE(LOINC) years AGE 72 LAB eGFR(LOINC) 60 - 999 ML/MINUTE eGFR >60 LAB eGFR(AA)(LOINC) 60 - 999 ML/MINUTE eGFR(AA) >60 Result Comment: ACCORDING TO THE NATIONAL KIDNEY DISEASE EDUCATION PROGRAM(NKDE), A NORMAL eGFR IS A VALUE GREATER THAN OR EQUAL TO 60 ML/MIN/1.73 SQ METERS. CHRONIC KIDNEY DISEASE: <60mL/MIN/1.73 SQ METERS KIDNEY FAILURE: <15mL/MIN/1.73 SQ METERS THIS TEST SHOULD ONLY BE USED FOR PATIENTS 18 YEARS OF AGE AND OLDER. Performed By: #### [id number] #### [facility],[address] [place] [address] LIPID PROFILE Collected: 04/23/2018 Status: F Source: [facility] 8:18 AM [facility] REPOSITORY TYPE CODE TESTS RESULT OUT OF REFERENCE UNITS RANGE LAB LIPID PROFILE(LOIN C) LIPID PROFILE Result Comment: LIPID PROFILE LAB TRIGLYCERIDE(LOINC) 0 - 150 mg/dl High TRIGLYCERIDE 200 LAB CHOLESTEROL(LOINC) 0 - 200 mg/dl CHOLESTEROL High 209 LAB HDL(LOINC) 40 - 60 mg/dl HDL 40 LAB CHOL/HDL(LOINC) 0.0 - 5.0 CHOL/HDL High 5.2 LAB LDL(LOINC) 0 - 129 mg/dl LDL 129 Performed By: #### [id number] #### [place] [id number] TSH Collected: 04/23/2018 Status: F Source: [facility] 8:18 AM [facility] REPOSITORY TYPE CODE TESTS RESULT OUT OF RANGE REFERENCE UNITS LAB TSH(LOINC) 0.34 - 5.60 uIU/ml TSH 3.16 Performed By: #### [id number] #### [facility],[address] [place] [address] HGB A1C Collected: 04/23/2018 Status: F Source: [facility] 8:18 AM [facility] REPOSITORY TYPE CODE TESTS RESULT OUT OF RANGE REFERENCE UNITS LAB HGB 4.4 - 6.4 % A1C(LOINC) High HGB A1C 7.2 Result Comment: {HB] {A1] Performed By: #### [id number] #### [place] [address] ALLERGIES ALLERGIES DATE TYPE / CODE NAME / CODE REACTION SEVERITY SOURCE Drug NO KNOWN [place] Class/[id number](SNO ALLERGIES Clinic Other MED CT) [place] [facility] NG/[id number](SNOMED NO KNOWN [facility]) ALLERGIES Health System Repository Miscellaneous No Known Drug Moderate [facility] Allergy/[id number](S Allergies ([facility]) Modifier) Hospital (Qualifier Repository Value) ENCOUNTERS ENCOUNTERS ADMIT/DISCHARGE ACCOUNT NUMBER ADMITTING ENCOUNTER LOCATION SOURCE CLASS 10/29/2018 [id number] Ambulatory RBuilding:[facility] Repository 10/27/2018 [id number] Ambulatory [facility] ding: Repository 10/20/2018/10/20/[id number] JOSE Emergency Buildin[address] [place] [address] Room: ERBed: [facility] Repository 08/07/2018/08/07/20 [id number] Emergency [address] Other [place] Repository 08/07/2018/08/07/20 [id number] Emergency [address] MEDICAL Repository CENTERBuildi ng:AKEDRoom: CIABed: 06/10/2018 [id number] , Ambulatory [facility] Repository 04/28/2018/04/28/20 [id number] LATONIA, Ambulatory [place] [address] [place] [address] Repository 04/23/2018/04/23/20 [id number] LATONIA, Ambulatory Mo [address] Repository PAYERS PAYERS ENCOUNTER GUARANTOR PAYER SUBSCRIBER SOURCE 10/29/2018 TRACI Gómez Primary Insurance:SELF TRACI Gómez [facility] HERSHBERGERDOB: PAY INSCOPolicy HERSHBERGERDOB: [facility] Number: Effective [id number] Repository [place] Date:2018-10-[address] [id number] Name:[address] [place] [address] [place] [phone]: () 10/27/2018 TRACI L Primary TRACI G[facility]z [id number] Insurance:MEDICARE HERSHBERGERDOB: Community [place] PART A BPolicy Number: [id number], [id number] [place]ository [place] [address]Bxt: Date:2018-10-27 () 10/27/2018 Secondary NOT GIVENUNK [place] Insurance:SELF PAY Community [facility] Number: Effective Repository Date:2018-10-27 10/20/2018 TRACI Gómez Primary Insurance:500 TRACI Gómez [place] HERSHBERGERDOB: MEDICARE HERSHBERGERDOB: [facility] [id number] [facility] [id number] [facility] [address] Number: [address] Repository [address] [place] [address], [id number] [address] [place] [address] Date:Plan Name:[facility] [id number]: () 10/20/2018 Secondary AALIYAH Marinelli Insurance:BLUE CROSS HERSHBERGERDOB: [address] [id number] [facility] OUTPATIENTPolicy [address] Repository Number: 337[place], [id number] [place] [id number] Date:Plan Name:B2 08/07/2018 TRACI Primary TRACI [facility] HERSHBERGERDOB: Insurance:MEDICARE A HERSHBERGERDOB: Health System AND BPolicy Number: [id number] Repository [place] [id number] [address] [place] [address], Date: [place] [address]Mpi: () 08/07/2018 Secondary AALIYAH W [facility] Insurance:BLUE CARD HERSHBERGERDOB: [facility] PPOPolicy Number: [id number] Repository [id number] Date: 06/10/2018 TRACI L Primary TRACI Marinelli HERSHBERGERDOB: Insurance:MEDICARE HERSHBERGERDOB: [facility] [id number] [facility] [address] LABPolicy Number: [address] Repository [facility], [id number] [address] [place] [address], [place] Date:Plan Name:[facility] [id number]: () 06/10/2018 Secondary TRACI Gómez [place] Insurance:THOMAS BURTON HERSHBERGERDOB: [employer] [facility] [id number] [facility] RECURRINGPolicy [address] Repository Number: 337[place], [id number] [place] [id number] Date:Plan Name: 04/28/2018 TRACI L Primary Insurance:500 TRACI Marinelli HERSHBERGERDOB: MEDICARE HERSHBERGERDOB: [facility] OUTPATIENTPolicy [id number] [facility] [address] Number: [address] Repository [facility], [id number] [place], [place] Date:Plan Name:[facility] [id number]: () 04/28/2018 Secondary AALIYAH W [place] Insurance:[employer]wave [facility]ENTERHBERGERDOB: [address] [id number] [facility] OUTPATIENTPolicy [address] Repository Number: 337[place] [id number] [place] [id number] Date: 04/23/[address] [facility] Insurance:[facility] TRACI Hassan [facility] HERSHBERGERDOB: MEDICARE HERSHBERGERDOB: [facility] [id number] OUT[facility]IENTPolun[facility] [id number] [facility] [address] Number: [address] Repository 337[place], [id number] [address] [place] [address] Date:Plan Name:[facility] [id number]: () 04/23/2018 Secondary AALIYAH Marinelli [facility]: [address] [id number] [facility] OUTPATIENTPolicy [address] Repository Number: 337[place] [id number] [place] [id number] Date:
== END 2018-11-05 23:59 ==
LOC: WC 09:42
PROVIDERS: Family Provider Family Medicine; PCP Family Medicine; Referring Provider Surgery; Visit Provider Surgery
DX: S00.03XA Contusion of scalp, initial encounter (principal); W10.9XXA Fall (on) (from) unspecified stairs and steps, initial encounter; Y92.008 Other place in unspecified non-institutional (private) residence as the place of occurrence of the external cause; I96 Gangrene, not elsewhere classified; I10 Essential (primary) hypertension; J44.9 Chronic obstructive pulmonary disease, unspecified; E11.9 Type 2 diabetes mellitus without complications; E66.9 Obesity, unspecified; Z68.32 Body mass index [BMI] 32.0-32.9, adult; Z71.3 Dietary counseling and surveillance; E78.5 Hyperlipidemia, unspecified; Z79.899 Other long term (current) drug therapy; Z79.84 Long term (current) use of oral hypoglycemic drugs; Z79.82 Long term (current) use of aspirin; Z79.51 Long term (current) use of inhaled steroids; Z87.891 Personal history of nicotine dependence
CPT/HCPCS: 11042; 11045; 87070; 87075; 87077; 87186; 87205; 87640; 99203; G0463

== ENCOUNTER 2018-11-23 10:15 | Outpatient (RCR) | payer MEDICARE, BC, SELFPAY ==
[2018-11-09 08:49] VITALS: BP 154/88; PULSE 83; RESP 18; TEMP 36.9; BMI 32.1
--- NOTE | 2018-11-09 09:56 | HP.PCM_ITS ---
History of Present Illness Date of Service: 11/09/18 - WOUND CENTER CONSULT REFERRING PHYSICIAN: Dr. Limon. SALES REPRESENTATIVE TRAINEE: Dr. Zaman. Chief Complaint: Infected hematoma occipital scalp wound. History of Wound: This is a 73-year-old female who presented initially with a large scalp wound. The patient tripped on the stairs in her garage at home about a month ago. She did not lose consciousness. She did not seek medical attention at that time. She was primarily concerned with the health of her , who has since . Due to the passing of the patient's , family members gathered at the patient's home, and the patient's son noted this large hematoma wound on her occipitial scalp. She was seen and evaluated in the emergency department at [facility] on October 20, 2018. There she was noted to have a hematoma of her occipital scalp, which was incised and partially drained. It is unknown whether cultures were obtained. Patient was placed on an antibiotic. A CT scan was performed on October 20, 2018, which revealed a 10 mm focus of increased attenuation in the maggy consistent with hemorrhage. This finding was not felt to be clinically significant, after discussion with the neurosurgeon at [facility], and a repeat scan to assure resolution was recommended. The available report of the patient's CT scan does not specifically indicate whether any skull fractures were evident. At her initial wound center visit, a wound culture was obtained on 10/27/18 which showed Staphylococcus aureus, Enterococcus faecalis, and Anaerobic cocci. She was placed on Augmentin. Also the necrotic skin was debrided and wound care started with Silver dressing changes daily. Patient is tolerating the wound care. Today she denies fever. Her appetite is ok. I was asked to evaluate this patient for surgical options for treatment. Past Medical History Past Medical History: Chronic Problems Hypertension (Chronic) COPD (chronic obstructive pulmonary disease) (Chronic) Diabetes mellitus (Chronic) Obesity (BMI 30.0-34.9) (Chronic) Hyperlipidemia (Chronic) Surgical History: - - Patient has a history of bilateral total hip replacements. She is undergone left total knee replacement in the past. Home Medications: Ambulatory Orders Medication Instructions Recorded Amlodipine 10 mg PO DAILY 10/27/18 Aspirin, Baby 81 mg PO DAILY 10/27/18 Atorvastatin Calcium 40 mg PO DAILY 10/27/18 Clonidine HCl 0.1 mg PO QHS 10/27/18 Coreg 40 mg PO DAILY 10/27/18 Janumet Xr 50-1,000 mg Tablet 50 mg PO DAILY 10/27/18 Latanoprost 0.5 mg EACH EYE QHS 10/27/18 Losartan-Hctz 100-12.5 mg Tab 100 mg PO DAILY 10/27/18 Metformin HCl 1,000 mg PO DAILY 10/27/18 Potassium 99 mg PO DAILY 10/27/18 Symbicort 80-4.5 Mcg Inhaler 80 mcg INHALATION BID 10/27/18 - Family History Paternal - - Patient's father in his 80s of old age. Patient's mother at age of 72 with a history of rheumatic heart disease. Smoking Status: Former smoker Review of Systems Constitutional: Denies: Chills, Fever, Weight Change. Eyes: Denies: Pain, Vision Change. HEENT: Denies: Difficulty Hearing, Difficulty Swallowing, Sinus Congestion. Cardiovascular: Denies: Chest Pain, Palpitations. Respiratory: Denies: Cough, Shortness of Breath. Gastrointestinal: Denies: Diarrhea, Nausea, Vomiting. Genitourinary: Denies: Dysuria, Hematuria. Endocrine: Denies: Heat/ Cold Intolerance, Polydipsia, Polyuria. Hematologic/ Lymphatic: Denies: Easy Bruising, Easy Bleeding - Physical Exam Vital Signs Temp Pulse Resp BP 98.4 F 83 18 154/88 H 11/09/18 08:49 11/09/18 08:49 11/09/18 08:49 11/09/18 08:49 General: Alert, Oriented x3 HEENT: PERRLA, EOMI Oral: Moist Mucosa Neck: Supple Lungs: Clear to auscultation Cardiovascular: Regular rate, Regular Rhythm Abdomen: Soft, Non-Distended Extremities: No clubbing, No cyanosis, No edema, No Calf Tenderness Skin: Ulcer/ Wound - on the occipital scalp is a hematoma wound that measures 3.5 x 5 cm. Little undermining is seen superiorly about 2 cm. Good granulation tissue is seen. No exposed bone. Mild tenderness to palpation. Wound Measurements and Assessment WC - Nurse 1 - General Ulcer Measurement Start: 11/09/18 08:49 Freq: Status: Active Protocol: Activity Type Activity Date Activity User E-Sign Co-Sign Detail Recorded Client Recorded Date Recorded By Document 11/09/18 08:49 DV [id number] 11/09/18 09:05 11/09/18 08:49 Wound Center Nurse 1 [Ulcer Assessment] #1 Posterior Head- Occipital -Combined with other wound No -Current Size (cm) - Length 3.1 -Current Size (cm) - Width 4.6 -Current Size (cm) - Depth 0.4 -Total Square Cm 14.26 -Photo Taken No -Epithelialization None Present -Tunneling No -Undermining/Tunneling No -Circular Undermining No -Classification - Thickness Full Thickness without Exposed Support Structure -Exudate Amt Large -Exudate Type Serous -Wound Margin Epibole -Granulation Amt Small (1-33%) -Granulation Quality N/A -Slough/Fibrin Yes -Necrosis Amt Small (1-33%) -Necrotic Tissue Type Adherent Slough -Structure Exposed N/A -Texture (Josephine-wound Skin Appearance) Assessed Localized Edema Scarring -Moisture (Josephine-wound Skin Appearance Assessed ) Weeping -Color (Josephine-wound Skin Appearance) No Abnormality Assessed -Temperature (Josephine-wound Skin No Abnormality Appearance) (Pt Warm) -Tenderness on Palpation (Josephine-wound No Skin Appearance) -Ulcer Cleansing Rinsed/ Irrigated with Saline -Foul Odor after Cleansing No -Anesthetic Used 4% Lidocaine Solution WC - Nurse 2 - General Ulcer CM Notes Start: 11/09/18 08:49 Freq: Status: Active Protocol: Activity Type Activity Date Activity User E-Sign Co-Sign Detail Recorded Client Recorded Date Recorded By Document 11/09/18 09:15 [id number] 11/09/18 09:16 11/09/18 09:15 Wound Center Nurse 2 [Procedure/Treatment] -Time 09:16 -Correct Patient Yes -Correct Side, Site, Position Yes -Correct Procedure Yes -Procedure Performed Yes -Type of Procedure Debridement -Clinical Debridement Subcutaneous -Post Debridement Size (cm) - Length 3.2 -Post Debridement Size (cm) - Width 4.6 -Post Debridement Size (cm) - Depth 0.4 -Total Square Cm 14.72 -Wound/Ulcer Outcome Not Healed -Ulcer Cleansing Rinsed/ Irrigated with Saline -Foul Odor after Cleansing No -Bioengineered Tissue No -Bleeding Controlled with Pressure -Offloading No -Treatment Response Procedure Tolerated Well [See Physician Procedure note for Specifics] Pain Scale: 0-10 Numeric [Pain] -Is Patient Pain Free? Yes Lymphatic: - - no cervical adenopathy. Neurological: Cranial nerves II-XII grossly intact Psych/Mental Status: Normal Affect, Appropriate Debridement Note Post-Debridement Measurements/Treatment WC - Nurse 2 - General Ulcer CM Notes Start: 11/09/18 08:49 Freq: Status: Active Protocol: Activity Type Activity Date Activity User E-Sign Co-Sign Detail Recorded Client Recorded Date Recorded By Document 11/09/18 09:15 [id number] 11/09/18 09:16 CRISTIAN 11/09/18 09:15 Wound Center Nurse 2 #1 Posterior Head- Occipital -Time 09:16 -Correct Patient Yes -Correct Side, Site, Position Yes -Correct Procedure Yes -Procedure Performed Yes -Type of Procedure Debridement -Clinical Debridement Subcutaneous -Post Debridement Size (cm) - Length 3.2 -Post Debridement Size (cm) - Width 4.6 -Post Debridement Size (cm) - Depth 0.4 -Total Square Cm 14.72 -Wound/Ulcer Outcome Not Healed -Ulcer Cleansing Rinsed/ Irrigated with Saline -Foul Odor after Cleansing No -Bioengineered Tissue No -Bleeding Controlled with Pressure -Offloading No -Treatment Response Procedure Tolerated Well Pain Scale: 0-10 Numeric Is Patient Pain Free? Yes Wound debrided: #1 Occipital scalp. Laterality: Not Applicable Wound Grade/Stage: 2. Type of Debridement: Excisional debridement Anesthesia Used: 4% Lidocaine Solution Depth: Down to and including healthy tissue, in the subcutaneous layer Percentage of wound debrided: 100 Instrument Used: 5mm curette Tissue Removed: subcutaneous tissue. Severity: Fat Layer Exposed Amount of bleeding with debridement: Mild Bleeding Controlled with: Pressure Patient tolerated procedure well Assessment/Plan Assessment: 1. Infected hematoma wound occipital scalp. 2. Traumatic hematoma occipital scalp with skin necrosis. 3. Diabetes mellitus. Plan: Continue Silver dressing changes daily. Continue Augmentin for recent cultures showing Staphylococcus aureus, Enterococcus faecalis, and Anaerobic cocci. Encourage nutritional supplementation with protein to help the healing process. Baseline labs were ordered and awaiting results (CBC, CMP, HgbA1c, and Prealbumin). There is a little bit of undermining superiorly. The wound is stable at the present time. Some granulation tissue present. There is no urgent need for operative debridement at this time. If there is a plateau in the healing process or the infection worsens or she has issues with the wound care, then we can proceed in a delayed fashion with skin grafting. The patient is doing fine with the Silver dressing changes at this time and wants to continue them. She will think about the skin graft surgery and let me know at future visits if she wants to proceed. We will defer management and follow-up relative to the patient's neurological status and recent CT scan findings showing hemorrhage within the maggy. The patient and her friend have been advised to seek follow-up in this regard with the patient's primary care physician in [place]. A follow-up CT scan has been recommended as follow-up to the initial scan. Patient was informed of the risks and complications of the procedure including alternatives to surgery. These were discussed with her personally. She voiced understanding and wishes to proceed with the current plan of wound care and antibiotics at this time. She understands that surgery may be needed in the future. Followup 2 weeks.
[2018-11-23 10:53] VITALS: BP 140/76; PULSE 73; RESP 18; TEMP 36.9; BMI 32.1
--- NOTE | 2018-11-23 17:30 | PCM.WC.PN ---
Type of Wound Date of Service: 11/23/18 Chief Complaint: Nonhealing hematoma ulcer occipital scalp. History of Wound: This is a 73-year-old female who presented initially with a large scalp wound. The patient tripped on the stairs in her garage at home in late September. She did not lose consciousness. She did not seek medical attention at that time. She was primarily concerned with the health of her , who has since . Due to the passing of the patient's , family members gathered at the patient's home, and the patient's son noted this large hematoma wound on her occipitial scalp. She was seen and evaluated in the emergency department at [facility] on October 20, 2018. There she was noted to have a hematoma of her occipital scalp, which was incised and partially drained. It is unknown whether cultures were obtained. Patient was placed on an antibiotic. A CT scan was performed on October 20, 2018, which revealed a 10 mm focus of increased attenuation in the maggy consistent with hemorrhage. This finding was not felt to be clinically significant, after discussion with the neurosurgeon at [facility], and a repeat scan to assure resolution was recommended. The available report of the patient's CT scan does not specifically indicate whether any skull fractures were evident. At her initial wound center visit, a wound culture was obtained on 10/27/18 which showed Staphylococcus aureus, Enterococcus faecalis, and Anaerobic cocci. She was placed on Augmentin. Also the necrotic skin was debrided and wound care started with Silver dressing changes daily. Patient is tolerating the wound care. Today she denies fever. Her appetite is ok. Progress of Wound: Improved. - Physical Exam Vital Signs Temp Pulse Resp BP 98.4 F 73 18 140/76 H 11/23/18 10:53 11/23/18 10:53 11/23/18 10:53 11/23/18 10:53 Wound Measurements and Assessment WC - Nurse 1 - General Ulcer Measurement Start: 11/09/18 08:49 Freq: Status: Active Protocol: Activity Type Activity Date Activity User E-Sign Co-Sign Detail Recorded Client Recorded Date Recorded By Document 11/23/18 10:53 MW [id number] 11/23/18 11:04 MW 11/23/18 10:53 Wound Center Nurse 1 [Ulcer Assessment] #1 Posterior Head- Occipital -Combined with other wound No -Current Size (cm) - Length 2.4 -Current Size (cm) - Width 2.2 -Current Size (cm) - Depth 0.4 -Total Square Cm 5.28 -Date of Last Picture (Recall this 11/23/18 field) -Photo Taken Yes -Epithelialization Small 1-33% -Tunneling No -Undermining/Tunneling No -Circular Undermining No -Exudate Amt Small -Exudate Type Serosanguineous -Wound Margin Flat & Intact -Granulation Amt Large (67-100%) -Granulation Quality [place] -Slough/Fibrin Yes -Necrosis Amt Small (1-33%) -Necrotic Tissue Type Adherent Slough -Structure Exposed N/A -Texture (Josephine-wound Skin Appearance) Assessed Scarring -Moisture (Josephine-wound Skin Appearance No Abnormality ) Assessed -Color (Josephine-wound Skin Appearance) No Abnormality Assessed -Temperature (Josephine-wound Skin No Abnormality Appearance) (Pt Warm) -Tenderness on Palpation (Josephine-wound Yes Skin Appearance) -Ulcer Cleansing Rinsed/ Irrigated with Saline -Foul Odor after Cleansing No -Anesthetic Used 5% Lidocaine Gel [Edema Assessment] -Lower Limb Edema Present No WC - Nurse 2 - General Ulcer CM Notes Start: 11/09/18 08:49 Freq: Status: Active Protocol: Activity Type Activity Date Activity User E-Sign Co-Sign Detail Recorded Client Recorded Date Recorded By Document 11/23/18 11:20 [id number] 11/23/18 11:21 CRISTIAN 11/23/18 11:20 Wound Center Nurse 2 [Procedure/Treatment] #1 Posterior Head- Occipital -Time 11:20 -Correct Patient Yes -Correct Side, Site, Position Yes -Correct Procedure Yes -Procedure Performed Yes -Type of Procedure Debridement -Clinical Debridement Subcutaneous -Post Debridement Size (cm) - Length 2.5 -Post Debridement Size (cm) - Width 2.2 -Post Debridement Size (cm) - Depth 0.4 -Total Square Cm 5.50 -Wound/Ulcer Outcome Not Healed -Ulcer Cleansing Rinsed/ Irrigated with Saline -Foul Odor after Cleansing No -Bioengineered Tissue No -Bleeding Controlled with Pressure -Offloading No -Treatment Response Procedure Tolerated Well [See Physician Procedure note for Specifics] Pain Scale: 0-10 Numeric [Pain] -Is Patient Pain Free? Yes Debridement Note Post-Debridement Measurements/Treatment WC - Nurse 2 - General Ulcer CM Notes Start: 11/09/18 08:49 Freq: Status: Active Protocol: Activity Type Activity Date Activity User E-Sign Co-Sign Detail Recorded Client Recorded Date Recorded By Document 11/09/18 09:15 CRISTIAN [id number] 11/09/18 09:16 Document 11/23/18 11:20 [id number] 11/23/18 11:21 11/09/18 11/23/18 09:15 11:20 Wound Center Nurse 2 #1 Posterior Head- Occipital -Time 09:16 11:20 -Correct Patient Yes Yes -Correct Side, Site, Position Yes Yes -Correct Procedure Yes Yes -Procedure Performed Yes Yes -Type of Procedure Debridement Debridement -Clinical Debridement Subcutaneous Subcutaneous -Post Debridement Size (cm) - Length 3.2 2.5 -Post Debridement Size (cm) - Width 4.6 2.2 -Post Debridement Size (cm) - Depth 0.4 0.4 -Total Square Cm 14.72 5.50 -Wound/Ulcer Outcome Not Healed Not Healed -Ulcer Cleansing Rinsed/ Rinsed/ Irrigated with Irrigated with Saline Saline -Foul Odor after Cleansing No No -Bioengineered Tissue No No -Bleeding Controlled with Pressure Pressure -Offloading No No -Treatment Response Procedure Procedure Tolerated Well Tolerated Well Pain Scale: 0-10 Numeric Is Patient Pain Free? Yes Yes Wound debrided: #1 Occipital scalp. Laterality: Not Applicable Wound Grade/Stage: 2. Type of Debridement: Excisional debridement Anesthesia Used: 4% Lidocaine Solution Depth: Down to and including healthy tissue, in the subcutaneous layer Percentage of wound debrided: 100 Instrument Used: 5mm curette Tissue Removed: subcutaneous tissue. Severity: Fat Layer Exposed Amount of bleeding with debridement: Mild Bleeding Controlled with: Pressure Patient tolerated procedure well Assessment/Plan Assessment: 1. Nonhealing hematoma ulcer occipital scalp. 2. Traumatic hematoma occipital scalp with skin necrosis. 3. Diabetes mellitus. Plan: Continue Silver dressing changes daily. Continue Augmentin for recent cultures showing Staphylococcus aureus, Enterococcus faecalis, and Anaerobic cocci. Encourage nutritional supplementation with protein to help the healing process. Baseline labs will be ordered by her PCP (CBC, CMP, HgbA1c, and Prealbumin). Good healing is noted thus far. Minimal undermining noted. There is no need for operative debridement at this time. If there is a plateau in the healing process or the infection worsens or she has issues with the wound care, then we can proceed in a delayed fashion with skin grafting. The patient is doing fine with the Silver dressing changes at this time and wants to continue them. She will think about the skin graft surgery and let me know at future visits if she wants to proceed. Patient was informed of the risks and complications of the procedure including alternatives to surgery. These were discussed with her personally. She voiced understanding and wishes to proceed with the current plan of wound care and antibiotics at this time. She understands that surgery may be needed in the future. Followup 2 weeks.
== END 2018-12-03 23:59 ==
LOC: WC 10:15
PROVIDERS: Family Provider Family Medicine; PCP Family Medicine; Visit Provider Surgery
DX: S00.03XA Contusion of scalp, initial encounter (principal); W10.9XXA Fall (on) (from) unspecified stairs and steps, initial encounter; Y92.008 Other place in unspecified non-institutional (private) residence as the place of occurrence of the external cause; J44.9 Chronic obstructive pulmonary disease, unspecified; E78.5 Hyperlipidemia, unspecified; E11.9 Type 2 diabetes mellitus without complications; I10 Essential (primary) hypertension; E66.9 Obesity, unspecified; Z71.3 Dietary counseling and surveillance; Z79.899 Other long term (current) drug therapy; Z79.51 Long term (current) use of inhaled steroids; Z79.82 Long term (current) use of aspirin; Z87.891 Personal history of nicotine dependence
CPT/HCPCS: 11042

== ENCOUNTER 2018-12-21 10:45 | Outpatient (RCR) | payer MEDICARE, SELFPAY ==
[2018-12-04 01:32] VITALS: BP 140/76; PULSE 73; RESP 18; TEMP 36.9
[2018-12-07 11:19] VITALS: BP 165/70; PULSE 69; RESP 18; TEMP 37; BMI 32.1
--- NOTE | 2018-12-07 17:38 | PCM.WC.PN ---
Type of Wound Date of Service: 12/07/18 Chief Complaint: Nonhealing hematoma ulcer occipital scalp. History of Wound: This is a 73-year-old female who presented initially with a large scalp wound. The patient tripped on the stairs in her garage at home in late September. She did not lose consciousness. She did not seek medical attention at that time. She was primarily concerned with the health of her , who has since . Due to the passing of the patient's , family members gathered at the patient's home, and the patient's son noted this large hematoma wound on her occipitial scalp. She was seen and evaluated in the emergency department at [facility] on October 20, 2018. There she was noted to have a hematoma of her occipital scalp, which was incised and partially drained. It is unknown whether cultures were obtained. Patient was placed on an antibiotic. A CT scan was performed on October 20, 2018, which revealed a 10 mm focus of increased attenuation in the maggy consistent with hemorrhage. This finding was not felt to be clinically significant, after discussion with the neurosurgeon at [facility], and a repeat scan to assure resolution was recommended. The available report of the patient's CT scan does not specifically indicate whether any skull fractures were evident. At her initial wound center visit, a wound culture was obtained on 10/27/18 which showed Staphylococcus aureus, Enterococcus faecalis, and Anaerobic cocci. She was placed on Augmentin. Also the necrotic skin was debrided and wound care started with Silver dressing changes daily. Patient is tolerating the wound care. Today she denies fever. Her appetite is ok. Progress of Wound: Improved. - Physical Exam Vital Signs Temp Pulse Resp BP 98.6 F 69 18 165/70 H 12/07/18 11:19 12/07/18 11:19 12/07/18 11:19 12/07/18 11:19 Wound Measurements and Assessment WC - Nurse 1 - General Ulcer Measurement Start: 12/07/18 11:19 Freq: Status: Active Protocol: Activity Type Activity Date Activity User E-Sign Co-Sign Detail Recorded Client Recorded Date Recorded By Document 12/07/18 11:19 DV [id number] 12/07/18 11:22 DV 12/07/18 11:19 Wound Center Nurse 1 [Ulcer Assessment] #1 Posterior Head- Occipital -Combined with other wound No -Current Size (cm) - Length 1.0 -Current Size (cm) - Width 1.7 -Current Size (cm) - Depth 0.1 -Total Square Cm 1.70 -Photo Taken No -Epithelialization None Present -Tunneling No -Undermining/Tunneling No -Circular Undermining No -Classification - Thickness Full Thickness without Exposed Support Structure -Exudate Amt None Present -Wound Margin Indistinct, Non -Visible -Granulation Amt None Present (0 %) -Granulation Quality N/A -Slough/Fibrin Yes -Necrosis Amt Large (67-100%) -Necrotic Tissue Type Adherent Slough -Structure Exposed None/Limited to Skin Breakdown -Texture (Josephine-wound Skin Appearance) No Abnormality Assessed -Moisture (Josephine-wound Skin Appearance Assessed ) Dry/Scaly -Color (Josephine-wound Skin Appearance) No Abnormality Assessed -Temperature (Josephine-wound Skin No Abnormality Appearance) (Pt Warm) -Ulcer Cleansing Rinsed/ Irrigated with Saline -Foul Odor after Cleansing No -Anesthetic Used 5% Lidocaine Gel WC - Nurse 2 - General Ulcer CM Notes Start: 12/07/18 11:19 Freq: Status: Active Protocol: Activity Type Activity Date Activity User E-Sign Co-Sign Detail Recorded Client Recorded Date Recorded By Document 12/07/18 11:56 [id number] 12/07/18 11:57 CRISTIAN 12/07/18 11:56 Wound Center Nurse 2 [Procedure/Treatment] -Time 11:56 -Correct Patient Yes -Correct Side, Site, Position Yes -Correct Procedure Yes -Procedure Performed Yes -Type of Procedure Debridement -Clinical Debridement Subcutaneous -Post Debridement Size (cm) - Length 0.8 -Post Debridement Size (cm) - Width 0.7 -Post Debridement Size (cm) - Depth 0.1 -Total Square Cm 0.56 -Wound/Ulcer Outcome Not Healed -Ulcer Cleansing Rinsed/ Irrigated with Saline -Foul Odor after Cleansing No -Bioengineered Tissue No -Bleeding Controlled with Pressure -Offloading No -Treatment Response Procedure Tolerated Well [See Physician Procedure note for Specifics] Pain Scale: 0-10 Numeric [Pain] -Is Patient Pain Free? Yes Debridement Note Post-Debridement Measurements/Treatment WC - Nurse 2 - General Ulcer CM Notes Start: 12/07/18 11:19 Freq: Status: Active Protocol: Activity Type Activity Date Activity User E-Sign Co-Sign Detail Recorded Client Recorded Date Recorded By Document 12/07/18 11:56 [id number] 12/07/18 11:57 CRISTIAN 12/07/18 11:56 Wound Center Nurse 2 #1 Posterior Head- Occipital -Time 11:56 -Correct Patient Yes -Correct Side, Site, Position Yes -Correct Procedure Yes -Procedure Performed Yes -Type of Procedure Debridement -Clinical Debridement Subcutaneous -Post Debridement Size (cm) - Length 0.8 -Post Debridement Size (cm) - Width 0.7 -Post Debridement Size (cm) - Depth 0.1 -Total Square Cm 0.56 -Wound/Ulcer Outcome Not Healed -Ulcer Cleansing Rinsed/ Irrigated with Saline -Foul Odor after Cleansing No -Bioengineered Tissue No -Bleeding Controlled with Pressure -Offloading No -Treatment Response Procedure Tolerated Well Pain Scale: 0-10 Numeric Is Patient Pain Free? Yes Wound debrided: #1 Occipital scalp. Laterality: Not Applicable Wound Grade/Stage: 2. Type of Debridement: Excisional debridement Anesthesia Used: 4% Lidocaine Solution Depth: Down to and including healthy tissue, in the subcutaneous layer Percentage of wound debrided: 100 Instrument Used: 5mm curette Tissue Removed: subcutaneous tissue. Severity: Fat Layer Exposed Amount of bleeding with debridement: Mild Bleeding Controlled with: Pressure Patient tolerated procedure well Assessment/Plan Assessment: 1. Nonhealing hematoma ulcer occipital scalp. 2. Traumatic hematoma occipital scalp with skin necrosis. 3. Diabetes mellitus. Plan: The ulcer continues to heal and become more superficial. Will change the Silver dressing to a Collagen Hydrogel. Continue Augmentin for recent cultures showing Staphylococcus aureus, Enterococcus faecalis, and Anaerobic cocci. Encourage nutritional supplementation with protein to help the healing process. Baseline labs will be ordered by her PCP (CBC, CMP, HgbA1c, and Prealbumin). With the ulcer healing satisfactory, there is no need for operative debridement at this time. If there is a plateau in the healing process or the infection worsens or she has issues with the wound care, then we can proceed in a delayed fashion with skin grafting. Patient was informed of the risks and complications of the procedure including alternatives to surgery. These were discussed with her personally. She voiced understanding and wishes to proceed with the current plan of wound care and antibiotics at this time. She understands that surgery may be needed in the future. Followup 2 weeks.
[2018-12-21 11:21] VITALS: BP 157/79; PULSE 72; RESP 18; TEMP 37.1; BMI 32.1
--- NOTE | 2018-12-21 13:13 | PN.PCM_ITS ---
Type of Wound Date of Service: 12/21/18 Chief Complaint: Nonhealing hematoma ulcer occipital scalp. History of Wound: This is a 73-year-old female who presented initially with a large scalp wound. The patient tripped on the stairs in her garage at home in late September. She did not lose consciousness. She did not seek medical attention at that time. She was primarily concerned with the health of her , who has since . Due to the passing of the patient's , family members gathered at the patient's home, and the patient's son noted this large hematoma wound on her occipitial scalp. She was seen and evaluated in the emergency department at [facility] on October 20, 2018. There she was noted to have a hematoma of her occipital scalp, which was incised and partially drained. It is unknown whether cultures were obtained. Patient was placed on an antibiotic. A CT scan was performed on October 20, 2018, which revealed a 10 mm focus of increased attenuation in the maggy consistent with hemorrhage. This finding was not felt to be clinically sig nificant, after discussion with the neurosurgeon at [facility], and a repeat scan to assure resolution was recommended. The available report of the patient's CT scan does not specifically indicate whether any skull fractures were evident. At her initial wound center visit, a wound culture was obtained on 10/27/18 which showed Staphylococcus aureus, Enterococcus faecalis, and Anaerobic cocci. She was placed on Augmentin. Also the necrotic skin was debrided and wound care started with Silver dressing changes daily. Patient is tolerating the wound care. Today she denies fever. Her appetite is ok. Progress of Wound: Healed. - Physical Exam Vital Signs Temp Pulse Resp BP 98.7 F 72 18 157/79 H 12/21/18 11:21 12/21/18 11:21 12/21/18 11:21 12/21/18 11:21 General: Alert, Oriented x3 HEENT: PERRLA, EOMI Oral: Moist Mucosa Neck: Supple Lungs: Clear to auscultation Cardiovascular: Regular rate, Regular Rhythm Abdomen: Soft, Non Tender Skin: Ulcer/ Wound - occipital ulcer has healed. Wound Measurements and Assessment WC - Nurse 1 - General Ulcer Measurement Start: 12/07/18 11:19 Freq: Status: Active Protocol: Activity Type Activity Date Activity User E-Sign Co-Sign Detail Recorded Client Recorded Date Recorded By Document 12/21/18 11:21 [id number] 12/21/18 11:26 12/21/18 11:21 Wound Center Nurse 1 [Ulcer Assessment] #1 Posterior Head- Occipital -Current Size (cm) - Length 0.4 -Current Size (cm) - Width 0.4 -Current Size (cm) - Depth 0.1 -Total Square Cm 0.16 -Photo Taken No -Exudate Amt None Present -Wound Margin Thickened -Granulation Amt Large (67-100%) -Granulation Quality [place] -Necrosis Amt Small (1-33%) -Necrotic Tissue Type Adherent Slough -Structure Exposed N/A -Texture (Josephine-wound Skin Appearance) Scarring -Moisture (Josephine-wound Skin Appearance No Abnormality ) -Color (Josephine-wound Skin Appearance) No Abnormality -Temperature (Josephine-wound Skin No Abnormality Appearance) (Pt Warm) -Ulcer Cleansing Rinsed/ Irrigated with Saline -Foul Odor after Cleansing No -Anesthetic Used 4% Lidocaine Solution - Nurse 2 - General Ulcer CM Notes Start: 12/07/18 11:19 Freq: Status: Active Protocol: Activity Type Activity Date Activity User E-Sign Co-Sign Detail Recorded Client Recorded Date Recorded By Document 12/21/18 12:24 [id number] 12/21/18 12:25 12/21/18 12:24 Wound Center Nurse 2 [Procedure/Treatment] -Correct Patient No -Correct Side, Site, Position No -Correct Procedure No -Procedure Performed No -Post Debridement Size (cm) - Length 0 -Post Debridement Size (cm) - Width 0 -Post Debridement Size (cm) - Depth 0 -Total Square Cm 0 -Wound/Ulcer Outcome Healed- Epithelialized [See Physician Procedure note for Specifics] Pain Scale: 0-10 Numeric [Pain] -Is Patient Pain Free? Yes Lymphatic: - - no cervical adenopathy. Neurological: Cranial nerves II-XII grossly intact Psych/Mental Status: Appropriate Debridement Note Post-Debridement Measurements/Treatment - Nurse 2 - General Ulcer CM Notes Start: 12/07/18 11:19 Freq: Status: Active Protocol: Activity Type Activity Date Activity User E-Sign Co-Sign Detail Recorded Client Recorded Date Recorded By Document 12/07/18 11:56 [id number] 12/07/18 11:57 Document 12/21/18 12:24 [id number] 12/21/18 12:25 JF 12/07/18 12/21/18 11:56 12:24 Wound Center Nurse 2 #1 Posterior Head- Occipital -Time 11:56 -Correct Patient Yes No -Correct Side, Site, Position Yes No -Correct Procedure Yes No -Procedure Performed Yes No -Type of Procedure Debridement -Clinical Debridement Subcutaneous -Post Debridement Size (cm) - Length 0.8 0 -Post Debridement Size (cm) - Width 0.7 0 -Post Debridement Size (cm) - Depth 0.1 0 -Total Square Cm 0.56 0 -Wound/Ulcer Outcome Not Healed Healed- Epithelialized -Ulcer Cleansing Rinsed/ Irrigated with Saline -Foul Odor after Cleansing No -Bioengineered Tissue No -Bleeding Controlled with Pressure -Offloading No -Treatment Response Procedure Tolerated Well Pain Scale: 0-10 Numeric Is Patient Pain Free? Yes Yes Wound debrided: #1 Occipital scalp. Laterality: Not Applicable Wound Grade/Stage: 2. No debridement was completed today - the ulcer has healed. Assessment/Plan Assessment: 1. Nonhealing hematoma ulcer occipital scalp. 2. Traumatic hematoma occipital scalp with skin necrosis. 3. Diabetes mellitus. Plan: The ulcer has healed. Massage with skin lotion or shampoo daily to help soften up the scar. She will followup on an as needed basis. If she is interested in the future in revising the scar because of alopecia, she will followup in my main office to discuss surgical options for that.
== END 2019-01-03 23:59 ==
LOC: WC 10:45
PROVIDERS: Family Provider Family Medicine; PCP Family Medicine; Visit Provider Surgery
DX: S00.03XA Contusion of scalp, initial encounter (principal); W10.9XXA Fall (on) (from) unspecified stairs and steps, initial encounter; Y92.008 Other place in unspecified non-institutional (private) residence as the place of occurrence of the external cause; E11.9 Type 2 diabetes mellitus without complications
CPT/HCPCS: 11042; 99212; G0463